=== PATIENT | female | born 1945 | race Caucasian/White ===

== ENCOUNTER 2019-01-30 11:44 | Emergency (ER) | payer OTHER, MEDICARE ==
[~2019-01-30] VITALS: Ht 157.5 cm; Wt 81.2 kg
[2019-01-30] MEDS ORDERED: IBUPROFEN 600600 M1 PO (13:33)
[2019-01-30 13:40] VITALS: BP 124/76
== END 2019-01-30 14:15 | disposition home or self-care (01) ==
LOC: ER 11:44
DX: S80.01XA Contusion of right knee, initial encounter (principal); S80.02XA Contusion of left knee, initial encounter; M25.531 Pain in right wrist; I10 Essential (primary) hypertension; E11.9 Type 2 diabetes mellitus without complications; W01.198A Fall on same level from slipping, tripping and stumbling with subsequent striking against other object, initial encounter; Y92.89 Other specified places as the place of occurrence of the external cause; Y93.89 Activity, other specified; Y99.8 Other external cause status